=== PATIENT | male | born 1985 | race Hispanic/Latino ===

== ENCOUNTER → 2019-03-05 07:53 | Outpatient (CLI) | payer OTHER, SELFPAY ==
--- NOTE | 2019-03-05 | DI.ECHO.S_ITS ---
[facility] +---------+ : : [address] : [address] : : : : [id number] : : : : Phone: [phone]+ Echocardiogram Report + + :Name: DORA HERMOSILLO Study Date: 03/05/2019 Height: 71 in : :[facility] Weight: 180 lb : : Gender: Male BSA: 2.0 m2 : :: 1985 Age: 33 yrs BP: 118/70 mmHg: :Reason For Study: Abnormal ECG : : Performed By: Daiana Crabtree : :Referring: UNSPECIFIED : + + Interpretation Summary The left ventricle is normal in size, wall thickness, and systolic function without any focal wall motion abnormalities. Diastolic parameters suggest probable normal left ventricular diastolic function and normal filling pressures. The right ventricle is normal in size and function. Pulmonary artery pressures cannot be estimated because of the lack of a measurable TR jet velocity but the IVC suggests a CVP of around 3 mmHg. Doppler findings do not suggest pulmonary hypertension. No hemodynamically significant valvular abnormalities. Essentially normal echocardiogram. There is no prior echocardiogram noted for this patient. Procedure: A two-dimensional transthoracic echocardiogram with color flow and Doppler was performed. The study quality was technically adequate. There is no prior echocardiogram noted for this patient. The patient was in normal sinus rhythm during the exam. Left Ventricle: The left ventricle is normal in size, wall thickness, and systolic function without any focal wall motion abnormalities. The ejection fraction is estimated to be 60-65%. Diastolic parameters suggest probable normal left ventricular diastolic function and normal filling pressures. Right Ventricle: The right ventricle is normal in size and function. Atria: Both atria are normal in size. Mitral Valve: The mitral valve is normal in structure and function. There is trace mitral regurgitation. Aortic Valve: The aortic valve is trileaflet. The aortic valve opens well. No aortic regurgitation is present. Tricuspid Valve: The tricuspid valve is normal in structure and function. There is trace tricuspid regurgitation. Pulmonary artery pressures cannot be estimated because of the lack of a measurable TR jet velocity but the IVC suggests a CVP of around 3 mmHg. Doppler findings do not suggest pulmonary hypertension. Pulmonic Valve: The pulmonic valve is normal in structure and function. There is no pulmonic valvular regurgitation. Great Vessels: The aortic root is borderline dilated. The dimensions of the ascending aorta are normal. The aortic arch is normal in size. The IVC is of normal diameter and collapses greater than 50% with a sniff. This suggests a low right atrial pressure of 3 mm Hg. Pericardium/ Pleura There is no pericardial effusion. There is no pleural effusion. MMode/2D Measurements & Calculations LVIDd: 5.4 cm Ao root diam: 3.7 cm LVIDs: 3.6 cm Aortic Jxn: 3.1 cm FS: 33.8 % asc Aorta Diam: 3.5 cm EPSS: 0.32 cm Ao Arch Diam (Prox Trans): 2.4 cm IVSd: 0.89 cm LVPWd: 1.0 cm LV linton. diameter/BSA (cm/m^2): 2.7 LV sys. diameter/BSA (cm/m^2): 1.8 LA dimension: 3.3 cm RA long axis: 4.8 cm LA A2 area: 26.2 cm2 RA area: 17.1 cm2 LA A4 area: 24.8 cm2 RA vol: 52.2 ml LA length (vol): 5.7 cm RA : 25.9 ml/m2 LA vol: 97.5 ml IVC diam: 2.4 cm LA vol index: 48.4 ml/m2 RVDd major: 6.5 cm RVD1 (basal): 3.3 cm LVAd ap4: 29.3 cm2 RVD2 (mid): 2.8 cm LVAs ap4: 18.0 cm2 LVLs ap4: 6.9 cm Doppler Measurements & Calculations Ao V2 max: 92.4 cm/sec MV E max eulogio: 59.3 cm/sec Ao V2 mean: 67.2 cm/sec MV A max eulogio: 45.6 cm/sec Ao max P.4 mmHg MV E/A: 1.3 Ao mean P.0 mmHg Med Peak E' Eulogoi: 13.9 cm/sec Ao V2 VTI: 23.1 cm E/E' med: 4.3 MV dec time: 0.25 sec MV P1/2t: 76.0 msec TR max eulogio: 186.3 cm/sec MV P1/2t max eulogio: 60.0 cm/sec TR max P.9 mmHg MVA(P1/2t): 2.9 cm2 PA V2 max: 78.6 cm/sec PA V2 mean: 59.0 cm/sec PA mean P.5 mmHg PA Accel Time: 0.20 sec Electronically signed by: Jacob Emanuel M.D. on Reading Physician:03/05/2019 09:44 AM
== END ==
DX: R94.31 Abnormal electrocardiogram [ECG] [EKG] (principal)
CPT/HCPCS: 93306

== ENCOUNTER 2019-12-20 06:31 | Emergency (ER) | payer OTHER, SELFPAY ==
[2019-12-20 06:36] VITALS: BP 123/75; PULSE 63; RESP 18; TEMP 36.9; O2SAT 100; BMI 25.7
--- NOTE | 2019-12-20 07:30 | ED.RECABL ---
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 He is completely asymptomatic. And has no complaints. Review of Systems Review of Systems Narrative: GENERAL: Denies chills, fatigue, malaise, fever, sweats, travel HEENT: Denies sinus pain, ear pain, sore throat, difficulty swallowing, neck pain RESPIRATORY: Denies dyspnea, cough, wheezing, hemoptysis, sputum. CARDIOVASCULAR: Denies chest pain, palpitations, orthopnea, edema GASTROINTESTINAL: Denies nausea, vomiting, abdominal pain, diarrhea, constipation, melena. : Denies dysuria, frequency, incontinence, hematuria, urinary retention, flank pain. MUSCULOSKELETAL: Denies weakness, joint pain, or bony pain SKIN: No rash, no erythema, no pruritus NEUROLOGIC: Denies weakness, dizziness, headache, numbness, change in speech, confusion PSYCHIATRIC: No concerning psychosocial issues. 12 point review of systems is negative except for those stated above and HPI Patient History Medical History Patient denies medical problems (Acute) Social History Smoking Status: Never smoker Smoking Status: Never smoker alcohol intake frequency: 0-2 drinks per day Substance Use Type: does not use Exam Initial Vital Signs Initial Vital Signs: Vital Signs Temperature 98.5 F 12/20/19 06:36 Pulse Rate 63 12/20/19 06:36 Respiratory Rate 18 12/20/19 06:36 Blood Pressure 123/75 12/20/19 06:36 Pulse Oximetry 100 12/20/19 06:36 GENERAL: Well-appearing, well-nourished and in no acute distress. CARDIOVASCULAR: peripheral pulses in tact, cap refill <2 sec RESPIRATORY: No respiratory distress, speaks in full sentences without difficulty EXTREMITIES: Normal range of motion, no clubbing or edema. Neurovascularly intact NEUROLOGICAL: Cranial nerves II through XII grossly intact. Normal gait and speech. SKIN: Warm, dry, no petechiae, no rashes or lesions. Course Orders Ordered: ED Orders 12/20/19 07:35 COVID19 -ED/INPAT/OR/L&D Stat Vital Signs Vital signs: Vital Signs - 8 hr 12/20/19 06:36 Temperature 98.5 F Pulse Rate 63 Respiratory Rate 18 Blood Pressure 123/75 Pulse Oximetry 100 MDM - Recheck/Abnormal Lab/Rx Lab Data Labs: Lab Results 12/20/19 Range/Units 07:35 COVID-19 PCR Negative (Negative) Discharge Plan Departure Patient Disposition: Home Clinical Impression: Feared complaint without diagnosis Activity Restrictions/Additional Instructions: *You have been diagnosed with covid with test negative *Continue to take medications as directed *Follow up with your primary care provider in 2-3 days *Return to ER if you should have any new, worsening or concerning symptoms Referrals: Jean-Pierre Fox [Primary Care Provider] -
[2019-12-20 07:57] LABS: COVID19 -Nasal RAPID Negative (Negative)
== END 2019-12-20 08:35 | disposition home or self-care (01) ==
PROVIDERS: Emergency Medicine; Emergency Provider Emergency Medicine; PCP Student in an Organized Health Care Education/Training Program
DX: Z11.59 Encounter for screening for other viral diseases (principal)
CPT/HCPCS: 87635; 99281; 99282